=== PATIENT | female | born 1985 | race Caucasian/White ===

== ENCOUNTER → 2017-05-21 | Outpatient (CLI) | payer BC ==
[~2017-05-21] MED LIST: OMEPRAZOLE40 MG PO
--- NOTE | ~2017-05-21 | CT57 ---
[facility] A Service [facility] RADIOLOGY TEXT RESULTS PATIENT: KEVIN SNEED LOCATION: [facility] : 89 UNIT #: [id number] AGE: [address]: Daniela Garcia SEX: F ORDER DR: [id number] [address] [id number] O MR#: [id number] Acc #: [id number] NAME: KEVIN SNEED : 1985 SEX: F STUDY DATE/TIME: 05/21/2017 15:41 UNIT: [facility] ROOM: STUDY DESCRIPTION: CT Chest Wo Cont Attending Physician: Daniela Garcia A.P.R.N. Referring Physician: Daniela Garcia A.P.R.N. Ordering Physician: Minnie Barraza A.P.R.N. Primary Care Physician: Minnie Barraza A.P.R.N. MEDICAL IMAGING REPORT This report is preliminary unless electronic signature is present. EXAM CT of the chest without contrast INDICATIONS Shortness of breath and chest pain for the past year. Pulmonary nodule. Followup. TECHNIQUE CT chest performed without contrast. Coronal and sagittal reformatted images were obtained. This CT exam was performed with one or more of the following radiation dose reduction techniques: automatic exposure control, adjustment of mA and/or kV according to patient size, and iterative reconstruction. COMPARISON 05/07/2016 FINDINGS There is a stable 4-mm nodule within the right middle lobe. This is unchanged compared with last year. There is a stable micronodule in the posterior aspect of the right upper lobe. Stable micronodule in the posterior left upper lobe. Stable tiny nodule adjacent to the left major fissure on image 71. No new nodules. No consolidation. No lymphadenopathy or pleural effusion. Limited imaging of the upper abdomen shows a tiny nonobstructing stone in the left kidney. The bone windows are unremarkable. IMPRESSION Stable tiny scattered micronodules within the lungs. These all should be benign. Dictated by... [facility] A Service [facility] RADIOLOGY TEXT RESULTS PATIENT: KEVIN SNEED [id number] [birth year] UNIT #: [id number] AGE: [address]: Daniela Garcia SEX: F ORDER DR: Richardson Chinchilla M.D. THIS IS AN ELECTRONICALLY VERIFIED REPORT Richardson Chinchilla M.D. at 05/23/2017 9:09 AM Jeffrey TD: 05/22/2017 15:04 JOB #: [id number] MEDICAL IMAGING REPORT Page 1 of 1
== END | disposition home or self-care (01) ==
LOC: SCT 15:29
DX: R07.1 Chest pain on breathing (principal); R91.1 Solitary pulmonary nodule
CPT/HCPCS: 71250